=== PATIENT | male | born 1955 | race Caucasian/White ===

== ENCOUNTER 2021-01-21 10:00 | Outpatient (CLI) | payer MEDICARE, OTHER | END 2021-01-21 23:59 | disposition home or self-care (01) | LOC: COV 10:00 | PROVIDERS: ATTEND Family Medicine | DX: Z01.812 Encounter for preprocedural laboratory examination (principal); Z20.822 Contact with and (suspected) exposure to COVID-19 ==

== ENCOUNTER 2022-08-19 08:06 | Outpatient (CLI) | payer MEDICARE | END 2022-08-19 08:07 | disposition home or self-care (01) | LOC: RT 08:06 | PROVIDERS: ATTEND Internal Medicine Cardiovascular Disease | DX: I49.9 Cardiac arrhythmia, unspecified (principal) | CPT/HCPCS: 93005 ==